=== PATIENT | male | born 1965 | race Two or more races ===

== ENCOUNTER → 2023-12-07 11:31 | Outpatient (REF) | payer OTHER, SELFPAY | LOC: PAVMRI 11:31 | PROVIDERS: ATTENDING PHYSICIAN Nurse Practitioner Acute Care; FAMILY PHYSICIAN Family Medicine | DX: S06.5XAA Traumatic subdural hemorrhage with loss of consciousness status unknown, initial encounter (principal) | CPT/HCPCS: 70553 ==